=== PATIENT | male | born 1990 | race African-American/Black ===

== ENCOUNTER 2020-01-28 02:51 | Emergency (ER) | payer MEDICARE, OTHER ==
[~2020-01-28] VITALS: Ht 182.9 cm; Wt 77.1 kg
[2020-01-28] MEDS: CLONAZEPAM 0.5 MG TABLET PO ONE (03:21)
[2020-01-28] MEDS: OXYCODONE HCL 5 MG TABLET PO ONE (03:22)
[2020-01-28] MEDS ORDERED: OXYCODONE HCL 5 MG TABLET ONE (03:24)
[2020-01-28] MEDS ORDERED: CLONAZEPAM 1 MG TABLET ONE (03:24)
--- NOTE | 2020-01-28 03:24 | NUR ---
Patient discharged to home in stable condition. Written and verbal after care instructions given. Patient verbalizes understanding of instructions. Stressed follow up or return to ER for worsening s/s. Ambulated from ER with stable gait. All belongings with patient.
[2020-01-28 03:25] VITALS: BP 127/70
== END 2020-01-28 03:25 | disposition home or self-care (01) ==
LOC: ER 02:55
DX: Z76.0 Encounter for issue of repeat prescription (principal); F41.9 Anxiety disorder, unspecified; Z59.0 Homelessness; F17.200 Nicotine dependence, unspecified, uncomplicated; J45.909 Unspecified asthma, uncomplicated; M79.673 Pain in unspecified foot
CPT/HCPCS: A4663

== ENCOUNTER 2020-02-03 16:25 | Emergency (ER) | payer MEDICARE, OTHER ==
[~2020-02-03] VITALS: Ht 182.9 cm; Wt 77.1 kg
[2020-02-03] MEDS ORDERED: OXYCODONE/APAP 5-325 MG TABLET ONE (16:42)
[2020-02-03] MEDS ORDERED: OXYCODONE/APAP 5-325 MG TABLET PO ONE (16:45)
--- NOTE | 2020-02-03 16:55 | NUR ---
Patient given written and verbal discharge instructions. Patient verbalizes understanding of instructions. Patient is ambulatory with steady gait. Refuses offer of [facility] placement. Patient given list of available shelters in surrounding area.
== END 2020-02-03 16:57 | disposition home or self-care (01) ==
LOC: ER 16:27
DX: M79.672 Pain in left foot (principal); Z76.0 Encounter for issue of repeat prescription; F20.9 Schizophrenia, unspecified; J45.909 Unspecified asthma, uncomplicated; G89.21 Chronic pain due to trauma; S92.002S Unspecified fracture of left calcaneus, sequela; X58.XXXS Exposure to other specified factors, sequela; Z59.0 Homelessness
CPT/HCPCS: A4663

== ENCOUNTER 2020-02-04 13:47 | Emergency (ER) | payer MEDICARE, OTHER ==
[~2020-02-04] VITALS: Ht 182.9 cm; Wt 79.8 kg
--- NOTE | 2020-02-04 14:00 | NUR ---
HOSPITAL LUNCH TRAY AND SANDWICH PROVIDED FOR PT. PT ATE WITH MAINOR.
[2020-02-04] MEDS ORDERED: IBUPROFEN 800 MG TABLET ONE (14:23)
[2020-02-04] MEDS ORDERED: IBUPROFEN 800 MG TABLET PO ONE (14:30)
--- NOTE | 2020-02-04 14:30 | NUR ---
Patient given written and verbal discharge instructions. Patient verbalizes understanding of instructions. Patient is ambulatory with steady gait. Refuses offer of care home placement. Patient given list of available shelters in surrounding area.PT WALKS IN STEADY GAIT.
== END 2020-02-04 14:30 | disposition home or self-care (01) ==
LOC: ER 13:47
DX: G89.29 Other chronic pain (principal); M79.672 Pain in left foot; M79.671 Pain in right foot; J45.909 Unspecified asthma, uncomplicated; F20.9 Schizophrenia, unspecified; Z59.0 Homelessness; R03.0 Elevated blood-pressure reading, without diagnosis of hypertension
CPT/HCPCS: A4663

== ENCOUNTER 2020-02-07 15:46 | Emergency (ER) | payer MEDICARE, OTHER ==
[~2020-02-07] VITALS: Ht 182.9 cm; Wt 79.4 kg
--- NOTE | 2020-02-07 15:50 | NUR ---
Dr. Frank at bedside for MSE
[2020-02-07] MEDS ORDERED: IBUPROFEN 600 MG TABLET PO ONE (16:00)
[2020-02-07] MEDS ORDERED: IBUPROFEN 600 MG TABLET ONE (16:06)
--- NOTE | 2020-02-07 16:08 | NUR ---
Patient given written and verbal discharge instructions. Patient verbalizes understanding of instructions. Patient is ambulatory with steady gait. Refuses offer of [facility] placement. Patient given list of available shelters in surrounding area. NAD noted
[2020-02-07 16:12] VITALS: BP 132/91
== END 2020-02-07 16:08 | disposition home or self-care (01) ==
LOC: ER 15:50
DX: G89.29 Other chronic pain (principal); M79.673 Pain in unspecified foot; Z59.0 Homelessness; F20.9 Schizophrenia, unspecified; J45.909 Unspecified asthma, uncomplicated
CPT/HCPCS: A4663

== ENCOUNTER 2020-02-17 19:41 | Emergency (ER) | payer MEDICARE, OTHER ==
[~2020-02-17] VITALS: Ht 182.9 cm; Wt 79.4 kg
--- NOTE | 2020-02-17 20:00 | NUR ---
Dr. Frank at bedside MSE.
--- NOTE | 2020-02-17 20:33 | NUR ---
Patient discharged to home in stable condition. Written and verbal after care instructions given. Patient verbalizes understanding of instructions. Stressed follow up or return to ER for worsening s/s. Ambulated out of ER in steady gait.
[2020-02-17 20:36] VITALS: BP 120/70
== END 2020-02-17 20:37 | disposition home or self-care (01) ==
LOC: ER 19:43
DX: Z76.0 Encounter for issue of repeat prescription (principal); G89.29 Other chronic pain; F41.9 Anxiety disorder, unspecified; Z59.0 Homelessness; F20.9 Schizophrenia, unspecified
CPT/HCPCS: A4663

== ENCOUNTER 2020-03-01 07:30 | Emergency (ER) | payer MEDICARE, OTHER ==
[~2020-03-01] VITALS: Ht 182.9 cm; Wt 79.4 kg
[2020-03-01] MEDS ORDERED: IBUPROFEN 800 MG TABLET PO ONE (08:30)
[2020-03-01] MEDS ORDERED: IBUPROFEN 800 MG TABLET ONE (08:40)
--- NOTE | 2020-03-01 08:41 | NUR ---
Patient given written and verbal discharge instructions. Patient verbalizes understanding of instructions. Patient is ambulatory with steady gait. Refuses offer of half-way placement. Patient given list of available shelters in surrounding area.pt provided sandwiches, snacks and jacket.
[2020-03-01 08:43] VITALS: BP 161/89
== END 2020-03-01 09:18 | disposition home or self-care (01) ==
LOC: ER 07:30
DX: G89.21 Chronic pain due to trauma (principal); M79.672 Pain in left foot; Z59.0 Homelessness; Z88.6 Allergy status to analgesic agent; J45.909 Unspecified asthma, uncomplicated; F20.9 Schizophrenia, unspecified; T14.90XS Injury, unspecified, sequela; W13.2XXS Fall from, out of or through roof, sequela
CPT/HCPCS: A4663

== ENCOUNTER 2020-03-07 01:20 | Emergency (ER) | payer MEDICARE, OTHER ==
[~2020-03-07] VITALS: Ht 182.9 cm; Wt 86.2 kg
--- NOTE | 2020-03-07 01:35 | NUR ---
at bedside for assessment.
[2020-03-07] MEDS ORDERED: CLONAZEPAM 0.5 MG TABLET PO ONE (01:45)
[2020-03-07] MEDS ORDERED: CLONAZEPAM 0.5 MG TABLET ONE (01:48)
--- NOTE | 2020-03-07 02:04 | NUR ---
Patient discharged to home in stable condition. Written and verbal after care instructions given. Patient verbalizes understanding of instructions. Stressed follow up or return to ER for worsening s/s. Patient ambulating with steady gate, no signs of distress or pain.
[2020-03-07 02:05] VITALS: BP 150/78
== END 2020-03-07 02:04 | disposition home or self-care (01) ==
LOC: ER 01:23
DX: F41.9 Anxiety disorder, unspecified (principal); Z76.0 Encounter for issue of repeat prescription; G89.29 Other chronic pain; J45.909 Unspecified asthma, uncomplicated; F20.9 Schizophrenia, unspecified
CPT/HCPCS: A4663

== ENCOUNTER 2020-04-07 19:14 | Emergency (ER) | payer MEDICARE, OTHER ==
[~2020-04-07] VITALS: Ht 177.8 cm; Wt 86.2 kg
[2020-04-08] MEDS ORDERED: ALPRAZOLAM 0.25 MG TABLET PO ONE (04:00)
[2020-04-08] MEDS ORDERED: ALPRAZOLAM 0.5 MG TABLET ONE (04:06)
[2020-04-08 04:22] VITALS: BP 150/89
--- NOTE | 2020-04-08 04:22 | NUR ---
Patient discharged to home in stable condition. Written and verbal after care instructions given. Patient verbalizes understanding of instructions. Stressed follow up or return to ER for worsening s/s.
== END 2020-04-08 04:23 | disposition home or self-care (01) ==
LOC: ER 19:14
DX: F41.9 Anxiety disorder, unspecified (principal); Z76.0 Encounter for issue of repeat prescription; F20.9 Schizophrenia, unspecified; R03.0 Elevated blood-pressure reading, without diagnosis of hypertension; G89.29 Other chronic pain; J45.909 Unspecified asthma, uncomplicated
CPT/HCPCS: A4663

== ENCOUNTER 2020-04-09 14:35 | Emergency (ER) | payer MEDICARE, OTHER ==
[~2020-04-09] VITALS: Ht 182.9 cm; Wt 90.7 kg
--- NOTE | 2020-04-09 14:40 | NUR ---
Pt was triaged and is in the ER lobby, there are no ER beds available at this time.
--- NOTE | 2020-04-09 17:12 | NUR ---
Patient discharged to home in stable condition. Written and verbal after care instructions given. Patient verbalizes understanding of instructions. Stressed follow up or return to ER for worsening s/s.pt walks in steady gait.
[2020-04-09] MEDS ORDERED: OXYCODONE/APAP 5-325 MG TABLET ONE (17:13)
[2020-04-09] MEDS ORDERED: OXYCODONE/APAP 5-325 MG TABLET PO ONE (17:15)
== END 2020-04-09 17:17 | disposition home or self-care (01) ==
LOC: ER 14:35
DX: M79.672 Pain in left foot (principal); Z76.0 Encounter for issue of repeat prescription; F20.9 Schizophrenia, unspecified; G89.29 Other chronic pain; J45.909 Unspecified asthma, uncomplicated; F41.9 Anxiety disorder, unspecified
CPT/HCPCS: A4663

== ENCOUNTER 2020-04-10 22:49 | Emergency (ER) | payer MEDICARE, OTHER ==
[~2020-04-10] VITALS: Ht 182.9 cm; Wt 90.7 kg
--- NOTE | 2020-04-10 23:02 | NUR ---
ATIVAN PO ADMIN. PT D/C'D HOME, ACI GIVEN, PT AMBULATED W/O DIFF/TOOK ALL BELONGINGS HOME,.
[2020-04-10 23:03] VITALS: BP 132/88
[2020-04-10] MEDS ORDERED: LORAZEPAM 0.5 MG TABLET ONE (23:06)
[2020-04-10] MEDS ORDERED: LORAZEPAM 0.5 MG TABLET PO ONE (23:15)
== END 2020-04-10 23:04 | disposition home or self-care (01) ==
LOC: ER 22:53
DX: F41.9 Anxiety disorder, unspecified (principal); G89.29 Other chronic pain; Z76.0 Encounter for issue of repeat prescription; J45.909 Unspecified asthma, uncomplicated; F20.9 Schizophrenia, unspecified; R03.0 Elevated blood-pressure reading, without diagnosis of hypertension
CPT/HCPCS: A4663

== ENCOUNTER 2020-04-28 11:57 | Emergency (ER) | payer MEDICARE, OTHER ==
[~2020-04-28] VITALS: Ht 175.3 cm; Wt 90.7 kg
[2020-04-28] MEDS ORDERED: OXYCODONE/APAP 5-325 MG TABLET PO ONE (12:15)
[2020-04-28] MEDS ORDERED: OXYCODONE/APAP 5-325 MG TABLET ONE (12:25)
[2020-04-29] MEDS ORDERED: OXYC-133 PO (18:39)
== END 2020-04-28 12:21 | disposition home or self-care (01) ==
LOC: ER 11:57
DX: J45.909 Unspecified asthma, uncomplicated (principal); F20.9 Schizophrenia, unspecified; F41.9 Anxiety disorder, unspecified; Z88.5 Allergy status to narcotic agent; Z76.0 Encounter for issue of repeat prescription
CPT/HCPCS: A4663

== ENCOUNTER 2020-04-29 02:25 | Emergency (ER) | payer MEDICARE, OTHER ==
[~2020-04-29] VITALS: Ht 182.9 cm; Wt 90.7 kg
--- NOTE | 2020-04-29 02:38 | NUR ---
Patient walked into ER c/o anxiety for 10hrs, stating "I take anything you recommend for anxiety." No other complaint from patient other than anxiety.
[2020-04-29] MEDS ORDERED: OXYC-133 PO (18:39)
== END 2020-04-29 03:01 | disposition home or self-care (01) ==
LOC: ER 02:37
DX: F41.9 Anxiety disorder, unspecified (principal); R03.0 Elevated blood-pressure reading, without diagnosis of hypertension; G89.29 Other chronic pain; F20.9 Schizophrenia, unspecified
CPT/HCPCS: A4663

== ENCOUNTER 2020-04-29 18:20 | Emergency (ER) | payer MEDICARE, OTHER ==
[~2020-04-29] VITALS: Ht 182.9 cm; Wt 90.7 kg
[2020-04-29] MEDS ORDERED: OXYC-133 PO (18:39)
[2020-04-29 20:23] VITALS: BP 132/77
--- NOTE | 2020-04-29 20:45 | NUR ---
Patient discharged to home in stable condition. Written and verbal after care instructions given. Patient verbalizes understanding of instructions. Stressed follow up or return to ER for worsening s/s. Patient ambulated with steady gait, all belongings given to patient prior to departure.
== END 2020-04-29 20:46 | disposition home or self-care (01) ==
LOC: ER 18:20
DX: R05 Cough (principal); Z20.822 Contact with and (suspected) exposure to COVID-19; F41.9 Anxiety disorder, unspecified; J45.909 Unspecified asthma, uncomplicated; F20.9 Schizophrenia, unspecified; G89.29 Other chronic pain
CPT/HCPCS: 71045; A4663

== ENCOUNTER 2020-04-30 10:31 | Emergency (ER) | payer MEDICARE, OTHER ==
[~2020-04-30] VITALS: Ht 182.9 cm; Wt 90.7 kg
[~2020-04-30 10:31] MED LIST: OXYC-133 PO
[2020-04-30] MEDS ORDERED: ACETAMINOPHEN ES 500 MG TABLET PO ONE (11:15)
[2020-04-30] MEDS ORDERED: ACETAMINOPHEN ES 500 MG TABLET ONE (11:30)
== END 2020-04-30 11:29 | disposition home or self-care (01) ==
LOC: ER 10:31
DX: B35.3 Tinea pedis (principal); G89.29 Other chronic pain; Z79.891 Long term (current) use of opiate analgesic; J45.909 Unspecified asthma, uncomplicated; F20.9 Schizophrenia, unspecified
CPT/HCPCS: A4663; A9150

== ENCOUNTER 2020-05-29 12:32 | Emergency (ER) | payer MEDICARE, OTHER ==
[~2020-05-29] VITALS: Ht 182.9 cm; Wt 90.7 kg
[2020-05-29] MEDS ORDERED: ALPRAZOLAM 0.25 MG TABLET PO ONE (13:00)
--- NOTE | 2020-05-29 13:00 | NUR ---
Gave pt RX and d/c instructions, pt verbalized understanding.
[2020-05-29] MEDS ORDERED: ALPRAZOLAM 0.5 MG TABLET ONE (13:02)
[2020-05-30] MEDS ORDERED: IBUP-1955 PO (08:36)
== END 2020-05-29 13:05 | disposition home or self-care (01) ==
LOC: ER 12:32
DX: F41.9 Anxiety disorder, unspecified (principal); Z76.0 Encounter for issue of repeat prescription; J45.909 Unspecified asthma, uncomplicated; G89.29 Other chronic pain; Z86.19 Personal history of other infectious and parasitic diseases
CPT/HCPCS: A4663

== ENCOUNTER 2020-05-30 08:15 | Emergency (ER) | payer MEDICARE, OTHER ==
[~2020-05-30] VITALS: Ht 188 cm; Wt 83.9 kg
[2020-05-30] MEDS ORDERED: IBUPROFEN 800 MG TABLET PO ONE (08:30)
[2020-05-30] MEDS ORDERED: IBUP-1955 PO (08:36)
[2020-05-30] MEDS ORDERED: IBUPROFEN 800 MG TABLET ONE (08:40)
--- NOTE | 2020-05-30 08:42 | NUR ---
Gave pt RX (electronic transaction) and d/c instructions, pt verbalized understanding.
== END 2020-05-30 08:55 | disposition home or self-care (01) ==
LOC: ER 08:15
DX: M79.672 Pain in left foot (principal); Z76.5 Malingerer [conscious simulation]; Z88.6 Allergy status to analgesic agent; G89.29 Other chronic pain; F20.9 Schizophrenia, unspecified; J45.909 Unspecified asthma, uncomplicated; Z86.19 Personal history of other infectious and parasitic diseases; F32.9 Major depressive disorder, single episode, unspecified
CPT/HCPCS: A4663

== ENCOUNTER 2020-05-31 18:38 | Emergency (ER) | payer MEDICARE, OTHER ==
[~2020-05-31] VITALS: Ht 188 cm; Wt 90.7 kg
[~2020-05-31 18:38] MED LIST changes: +IBUP-1955 PO
[2020-05-31] MEDS ORDERED: IBUPROFEN 600 MG TABLET PO ONE (19:00)
[2020-05-31] MEDS ORDERED: diphenhydrAMINE 25 MG/10 ML UDC PO ONE (19:00)
--- NOTE | 2020-05-31 19:00 | NUR ---
Assumed care of patient from day shift CLINT Cannon. Patient came in with complaints of anxiety. AAOX4. No cardiorespiratory concern. No /GI concern.
[2020-05-31] MEDS ORDERED: diphenhydrAMINE 25 MG CAP PO ONE (19:09)
[2020-05-31] MEDS ORDERED: IBUPROFEN 600 MG TABLET ONE (19:09)
--- NOTE | 2020-05-31 19:15 | NUR ---
Patient discharged to home in stable condition. Written and verbal after care instructions given. Patient verbalizes understanding of instructions. Stressed follow up or return to ER for worsening s/s. Pt ambulated out of the ER with steady gait. All belongings with pt.
[2020-05-31 19:34] VITALS: BP 130/70
== END 2020-05-31 19:15 | disposition home or self-care (01) ==
LOC: ER 18:40
DX: F41.9 Anxiety disorder, unspecified (principal); Z76.5 Malingerer [conscious simulation]; G89.29 Other chronic pain; F20.9 Schizophrenia, unspecified; Z86.19 Personal history of other infectious and parasitic diseases; F17.200 Nicotine dependence, unspecified, uncomplicated; Z59.0 Homelessness
CPT/HCPCS: 99283; Q0163; A4663

== ENCOUNTER 2020-06-01 12:34 | Emergency (ER) | payer MEDICARE, OTHER ==
[~2020-06-01] VITALS: Ht 188 cm; Wt 90.7 kg
[2020-06-01] MEDS ORDERED: CLONAZEPAM 0.5 MG TABLET PO ONE (13:00)
[2020-06-01] MEDS ORDERED: buPROPion XL 150 MG TAB.SR.24H PO ONE (13:00)
[2020-06-01] MEDS ORDERED: CLONAZEPAM 0.5 MG TABLET ONE (13:04)
--- NOTE | 2020-06-01 13:04 | NUR ---
Note violet in EDM - 06/01/20 at 1324 by JAROD Patient given written and verbal discharge instructions. Patient verbalizes understanding of instructions. Patient is ambulatory with steady gait. Refuses offer of [facility] placement. Patient given list of available shelters in surrounding area.
--- NOTE | 2020-06-01 13:24 | NUR ---
Patient discharged to home in stable condition. Written and verbal after care instructions given. Patient verbalizes understanding of instructions. Stressed follow up or return to ER for worsening s/s.pt deneis to be homeless.
== END 2020-06-01 13:20 | disposition home or self-care (01) ==
LOC: ER 12:36
DX: F41.9 Anxiety disorder, unspecified (principal); F32.9 Major depressive disorder, single episode, unspecified; Z76.0 Encounter for issue of repeat prescription; G89.29 Other chronic pain; F20.9 Schizophrenia, unspecified; Z59.0 Homelessness; J45.909 Unspecified asthma, uncomplicated; Z86.19 Personal history of other infectious and parasitic diseases
CPT/HCPCS: A4663

== ENCOUNTER 2020-06-03 11:17 | Emergency (ER) | payer MEDICARE, OTHER ==
[~2020-06-03] VITALS: Ht 188 cm; Wt 90.7 kg
--- NOTE | 2020-06-03 11:36 | NUR ---
Pt c/o right heel pain again. Pt denies CP, SOB, dizziness, n/v, no other complaints, no distress noted.
[2020-06-03] MEDS ORDERED: IBUPROFEN 600 MG TABLET PO ONE (11:45)
[2020-06-03] MEDS ORDERED: IBUPROFEN 600 MG TABLET ONE (11:57)
[2020-06-03] MEDS ORDERED: IBUP-1955 PO (12:16)
--- NOTE | 2020-06-03 12:28 | NUR ---
Gave pt RX and d/c instructions, pt verbalized understanding.
== END 2020-06-03 12:30 | disposition home or self-care (01) ==
LOC: ER 11:17
DX: G89.29 Other chronic pain (principal); M79.672 Pain in left foot; S92.002S Unspecified fracture of left calcaneus, sequela; X58.XXXS Exposure to other specified factors, sequela; J45.909 Unspecified asthma, uncomplicated; F20.9 Schizophrenia, unspecified; Z86.19 Personal history of other infectious and parasitic diseases
CPT/HCPCS: 73630; A4663

== ENCOUNTER 2020-06-04 17:56 | Emergency (ER) | payer MEDICARE, OTHER ==
[~2020-06-04] VITALS: Ht 188 cm; Wt 90.7 kg
--- NOTE | 2020-06-04 18:54 | NUR ---
Patient discharged to home in stable condition. Written and verbal after care instructions given. Patient verbalizes understanding of instructions. Stressed follow up or return to ER for worsening s/s.PT REQUESTED AMARA, PROVIDED.
--- NOTE | 2020-06-04 18:55 | NUR ---
PT DENEIS TO BE HOMELESS.
[2020-06-04] MEDS ORDERED: CLONAZEPAM 0.5 MG TABLET ONE (18:57)
[2020-06-04] MEDS ORDERED: CLONAZEPAM 0.5 MG TABLET PO ONE (19:00)
== END 2020-06-04 18:55 | disposition home or self-care (01) ==
LOC: ER 17:56
DX: G89.29 Other chronic pain (principal); F41.9 Anxiety disorder, unspecified; Z76.0 Encounter for issue of repeat prescription; F20.9 Schizophrenia, unspecified; J45.909 Unspecified asthma, uncomplicated
CPT/HCPCS: A4663

== ENCOUNTER 2020-06-06 12:00 | Emergency (ER) | payer MEDICARE, OTHER ==
[~2020-06-06] VITALS: Ht 188 cm; Wt 90.7 kg
== END 2020-06-06 12:30 | disposition left against medical advice (07) ==
LOC: ER 12:03
DX: Z76.5 Malingerer [conscious simulation] (principal); G89.21 Chronic pain due to trauma; M79.673 Pain in unspecified foot; S92.009S Unspecified fracture of unspecified calcaneus, sequela; X58.XXXS Exposure to other specified factors, sequela
CPT/HCPCS: A4663

== ENCOUNTER 2020-06-07 14:16 | Emergency (ER) | payer MEDICARE, OTHER | END 2020-06-07 14:21 | disposition left against medical advice (07) | LOC: ER 14:16 | DX: Z75.3 Unavailability and inaccessibility of health-care facilities (principal) ==

== ENCOUNTER 2020-06-08 17:23 | Emergency (ER) | payer MEDICARE, OTHER ==
[~2020-06-08] VITALS: Ht 188 cm; Wt 90.7 kg
[2020-06-08] MEDS ORDERED: CHLORDIAZEPOXIDE HCL 25 MG CAPSULE PO ONE (17:45)
--- NOTE | 2020-06-08 17:52 | NUR ---
PT WAS EVALUATED BY DR PATEL. PT WAS D/C'd TO HOME. D/C INSTRUCTIONS GIVEN TO THE PT BY DR PATEL. NO S/S OF DISTRESS AT THE TIME OF DISCHARGE.
[2020-06-08] MEDS ORDERED: CHLORDIAZEPOXIDE HCL 25 MG CAPSULE ONE (17:54)
[2020-06-08 17:56] VITALS: BP 135/77
== END 2020-06-08 17:56 | disposition home or self-care (01) ==
LOC: ER 17:24
DX: F41.9 Anxiety disorder, unspecified (principal); Z76.0 Encounter for issue of repeat prescription; G89.29 Other chronic pain; F20.9 Schizophrenia, unspecified; J45.909 Unspecified asthma, uncomplicated; F32.9 Major depressive disorder, single episode, unspecified; Z59.0 Homelessness
CPT/HCPCS: A4663

== ENCOUNTER 2020-06-24 09:31 | Emergency (ER) | payer MEDICARE, OTHER ==
[~2020-06-24] VITALS: Ht 182.9 cm; Wt 90.7 kg
[2020-06-24] MEDS ORDERED: DICYCLOMINE HCL 10 MG CAPSULE PO ONE (09:45)
[2020-06-24] MEDS ORDERED: ONDANSETRON ODT 4 MG TAB.RAPDIS SL ONE (09:45)
[2020-06-24] MEDS ORDERED: FAMOTIDINE 20 MG TABLET PO ONE (09:45)
[2020-06-24] MEDS ORDERED: ONDANSETRON ODT 4 MG TAB.RAPDIS ONE (09:56)
[2020-06-24] MEDS ORDERED: FAMOTIDINE 20 MG TABLET ONE (09:57)
[2020-06-24] MEDS ORDERED: DICYCLOMINE HCL LIQ 10 MG/5 ML UDC ONE (09:57)
[2020-06-24 10:07] LABS: BASOPHILS % (AUTO) 0.8 % (0.0-2.0); EOSINOPHILS # (AUTO) 0.1 K/uL (0.0-0.7); EOSINOPHILS % (AUTO) 1.1 % (0.0-7.0); HEMATOCRIT 40.1 % (36.7-47.1); HEMOGLOBIN 13.6 g/dL (12.5-16.3); LYMPHOCYTES # (AUTO) 1.7 K/uL (20.0-40.0); MEAN CORPUSCULAR HEMOGLOBIN 32.1 uug (23.8-33.4); MEAN CORPUSCULAR HGB CONC 34 g/dL (32.5-36.3); MEAN CORPUSCULAR VOLUME 94.5 fL (73.0-96.2); MONOCYTES # (AUTO) 0.6 K/uL (2.0-10.0); MONOCYTES % (AUTO) 9.7 % (0.0-11.0); NEUTROPHILS # (AUTO) 3.5 K/uL (1.8-8.9); NEUTROPHILS % (AUTO) 59.4 % (38.5-71.5); PLATELET COUNT (AUTO) 245 K/uL (152-348); RED BLOOD CELL COUNT(AUTO) 4.25 MIL/uL (4.06-5.63); WHITE BLOOD COUNT (AUTO) 5.9 K/uL (3.6-10.2)
[2020-06-24 10:21] LABS: CREATININE 1.1 mg/dL (0.6-1.3); POTASSIUM 3.8 mmol/L (3.5-5.1)
[2020-06-24 10:30] LABS: BILIRUBIN,DIRECT 0.2 mg/dL (0.0-0.2); BILIRUBIN,TOTAL 0.8 mg/dL (0.2-1.0); TOTAL PROTEIN, SERUM 7.1 g/dL (6.4-8.2)
[2020-06-24 10:31] LABS: *AMPHETAMINE, URINE POSITIVE (NEGATIVE); *CANNABINOID, URINE POSITIVE (NEGATIVE); *COCCAINE, URINE NEGATIVE (NEGATIVE); *OPIATE, URINE NEGATIVE (NEGATIVE); *PHENCYCLIDINE SCREEN,URINE NEGATIVE (NEGATIVE)
--- NOTE | 2020-06-24 10:43 | NUR ---
pt deneis any nausea at this time, food provided per pt request and md torres.
--- NOTE | 2020-06-24 11:17 | NUR ---
pt toleated food well, says feels good. Patient discharged to home in stable condition. Written and verbal after care instructions given. Patient verbalizes understanding of instructions. Stressed follow up or return to ER for worsening s/s.
--- NOTE | 2020-06-24 11:19 | NUR ---
pt refuses offer of assisted placement. Patient given list of available shelters in surrounding area.
[2020-06-24 11:27] VITALS: BP 121/79
== END 2020-06-24 11:29 | disposition home or self-care (01) ==
LOC: ER 09:31
DX: R10.12 Left upper quadrant pain (principal); F19.10 Other psychoactive substance abuse, uncomplicated; R03.0 Elevated blood-pressure reading, without diagnosis of hypertension; G89.29 Other chronic pain; Z59.0 Homelessness; J45.909 Unspecified asthma, uncomplicated; F41.9 Anxiety disorder, unspecified; F20.9 Schizophrenia, unspecified; Z86.19 Personal history of other infectious and parasitic diseases; Z79.899 Other long term (current) drug therapy; R74.01 Elevation of levels of liver transaminase levels
CPT/HCPCS: 36415; 83690; 85025; A4663; Q0162

== ENCOUNTER 2020-07-03 11:30 | Emergency (ER) | payer MEDICARE, OTHER ==
[~2020-07-03] VITALS: Ht 182.9 cm; Wt 90.7 kg
--- NOTE | 2020-07-03 11:40 | NUR ---
at bedside for assessment
[2020-07-03] MEDS ORDERED: LORAZEPAM 2 MG/1 ML VIAL IM ONE (11:45)
[2020-07-03] MEDS ORDERED: LORAZEPAM 2 MG/1 ML VIAL ONE (11:50)
[2020-07-03 11:57] LABS: BASOPHILS % (AUTO) 0.6 % (0.0-2.0); EOSINOPHILS # (AUTO) 0.1 K/uL (0.0-0.7); EOSINOPHILS % (AUTO) 1.1 % (0.0-7.0); HEMATOCRIT 41.2 % (36.7-47.1); HEMOGLOBIN 13.9 g/dL (12.5-16.3); LYMPHOCYTES # (AUTO) 1.7 K/uL (20.0-40.0); LYMPHOCYTES % (AUTO) 33.1 % (20.5-51.5); MEAN CORPUSCULAR HEMOGLOBIN 31.6 uug (23.8-33.4); MEAN CORPUSCULAR HGB CONC 34 g/dL (32.5-36.3); MEAN CORPUSCULAR VOLUME 93.6 fL (73.0-96.2); MONOCYTES # (AUTO) 0.4 K/uL (2.0-10.0); MONOCYTES % (AUTO) 7.3 % (0.0-11.0); NEUTROPHILS % (AUTO) 57.9 % (38.5-71.5); PLATELET COUNT (AUTO) 270 K/uL (152-348); RED BLOOD CELL COUNT(AUTO) 4.41 MIL/uL (4.06-5.63); WHITE BLOOD COUNT (AUTO) 5.3 K/uL (3.6-10.2)
[2020-07-03 12:05] LABS: CREATININE 1.4 mg/dL (0.6-1.3); POTASSIUM 4.4 mmol/L (3.5-5.1)
[2020-07-03 12:12] LABS: BILIRUBIN,DIRECT 0.2 mg/dL (0.0-0.2); BILIRUBIN,TOTAL 0.6 mg/dL (0.2-1.0); TOTAL PROTEIN, SERUM 6.9 g/dL (6.4-8.2)
--- NOTE | 2020-07-03 12:33 | NUR ---
Patient discharged to home in stable condition. able to ambulate with steady gait, no signs of acute distress. Written and verbal after care instructions given. Patient verbalizes understanding of instructions. Stressed follow up or return to ER for worsening s/s.
[2020-07-03 12:35] VITALS: BP 119/75
[2020-07-03] MEDS ORDERED: HYDROMORPHONE 1 MG/1 ML DISP.SYRIN IV ONE (12:45)
[2020-07-03] MEDS ORDERED: KETOROLAC TROMETHAMINE 30 MG INJ IVP ONE (12:45)
== END 2020-07-03 12:35 | disposition home or self-care (01) ==
LOC: ER 11:30
DX: R10.13 Epigastric pain (principal); F41.9 Anxiety disorder, unspecified; F17.210 Nicotine dependence, cigarettes, uncomplicated; Z59.0 Homelessness; G89.29 Other chronic pain; F20.9 Schizophrenia, unspecified; J45.909 Unspecified asthma, uncomplicated; Z86.19 Personal history of other infectious and parasitic diseases
CPT/HCPCS: 36415; 80048; 80076; 83690; 85025; 96372; 99283; J2060; A4663

== ENCOUNTER 2020-08-28 02:59 | Emergency (ER) | payer MEDICARE, OTHER ==
[~2020-08-28] VITALS: Ht 182.9 cm; Wt 90.7 kg
--- NOTE | 2020-08-28 03:09 | NUR ---
Patient pacing around the ER, stating he feels nervous and requests to see the doctor immediately. Patient was led to wait back in his room, MD Raymond Meredith made aware.
[2020-08-28] MEDS ORDERED: ARIP15TA3 PO (03:18)
--- NOTE | 2020-08-28 03:20 | NUR ---
Patient uncooperative and refusing to stay in his room, asserting himself into the nursing station, not respecting personal boundaries of hospital staff. De-escalation techniques unsuccessful, security called to bedside.
[2020-08-28] MEDS ORDERED: ARIPIPRAZOLE 5 MG TABLET ONE (03:28)
[2020-08-28] MEDS ORDERED: ARIPIPRAZOLE 5 MG TABLET PO ONE (03:30)
[2020-08-28 03:40] VITALS: BP 140/96
--- NOTE | 2020-08-28 03:40 | NUR ---
Patient discharged in stable condition. Written and verbal after care instructions given. Patient verbalizes understanding of instructions. Stressed follow up or return to ER for worsening s/s. Patient ambulates with steady gait, V/S stable, paper Rx given, patient left with all personal belongings. Patient was escorted with security.
== END 2020-08-28 03:40 | disposition home or self-care (01) ==
LOC: ER 02:59
DX: R41.9 Unspecified symptoms and signs involving cognitive functions and awareness (principal); F20.9 Schizophrenia, unspecified; Z76.0 Encounter for issue of repeat prescription; Z59.0 Homelessness; R03.0 Elevated blood-pressure reading, without diagnosis of hypertension; Z86.19 Personal history of other infectious and parasitic diseases; J45.909 Unspecified asthma, uncomplicated; G89.29 Other chronic pain
CPT/HCPCS: A4663

== ENCOUNTER 2020-08-29 07:11 | Emergency (ER) | payer MEDICARE, OTHER ==
[~2020-08-29] VITALS: Ht 182.9 cm; Wt 90.7 kg
[~2020-08-29 07:11] MED LIST changes: +ARIP15TA3 PO
--- NOTE | 2020-08-29 07:49 | NUR ---
BREAK FAST TRAY PROVIDED PER PT REQUEST.
--- NOTE | 2020-08-29 09:14 | NUR ---
Patient given written and verbal discharge instructions. Patient verbalizes understanding of instructions. Patient is ambulatory with steady gait. Refuses offer of penitentiary placement. Patient given list of available shelters in surrounding area. PT WALKS IN STEADY GAIT.
== END 2020-08-29 09:15 | disposition home health service (06) ==
LOC: ER 07:15
DX: F41.9 Anxiety disorder, unspecified (principal); Z59.0 Homelessness; F20.9 Schizophrenia, unspecified; J45.909 Unspecified asthma, uncomplicated; G89.29 Other chronic pain; F13.10 Sedative, hypnotic or anxiolytic abuse, uncomplicated; Z86.19 Personal history of other infectious and parasitic diseases; F32.9 Major depressive disorder, single episode, unspecified
CPT/HCPCS: A4663

== ENCOUNTER 2020-09-07 22:56 | Emergency (ER) | payer MEDICARE, OTHER ==
[~2020-09-07] VITALS: Ht 182.9 cm; Wt 90.7 kg
--- NOTE | 2020-09-08 00:22 | NUR ---
at bedside for MSE.
--- NOTE | 2020-09-08 00:42 | NUR ---
Patient discharged to home in stable condition. Written and verbal after care instructions given. Patient verbalizes understanding of instructions. Stressed follow up or return to ER for worsening s/s. Pt walked out of ER with steady gait.
[2020-09-08 00:43] VITALS: BP 131/87
== END 2020-09-08 00:43 | disposition home or self-care (01) ==
LOC: ER 22:57
DX: F41.9 Anxiety disorder, unspecified (principal); G89.29 Other chronic pain; Z76.5 Malingerer [conscious simulation]; F20.9 Schizophrenia, unspecified; J45.909 Unspecified asthma, uncomplicated; Z86.19 Personal history of other infectious and parasitic diseases; F17.200 Nicotine dependence, unspecified, uncomplicated
CPT/HCPCS: A4663

== ENCOUNTER 2020-09-11 18:34 | Emergency (ER) | payer MEDICARE, OTHER ==
[~2020-09-11] VITALS: Ht 182.9 cm; Wt 90.7 kg
[2020-09-11] MEDS ORDERED: HYDR-3980 PO (18:42)
[2020-09-11] MEDS ORDERED: HYDROCODONE/APAP 10-325 MG TABLET PO ONE (18:45)
[2020-09-11] MEDS ORDERED: ALPRAZOLAM 0.25 MG TABLET PO ONE (18:45)
[2020-09-11 18:52] VITALS: BP 126/69
[2020-09-11] MEDS ORDERED: ALPRAZOLAM 0.5 MG TABLET ONE (18:54)
[2020-09-11] MEDS ORDERED: HYDROCODONE/APAP 10-325 MG TABLET ONE (18:54)
== END 2020-09-11 18:52 | disposition home or self-care (01) ==
LOC: ER 18:35
DX: G89.29 Other chronic pain (principal); F41.9 Anxiety disorder, unspecified; Z76.0 Encounter for issue of repeat prescription; J45.909 Unspecified asthma, uncomplicated; Z86.19 Personal history of other infectious and parasitic diseases; F20.9 Schizophrenia, unspecified
CPT/HCPCS: A4663

== ENCOUNTER 2020-09-13 00:30 | Inpatient (IN) | payer MEDICARE, OTHER ==
[2020-09-13] VITALS (17 sets, daily range): BP systolic 109–152; BP diastolic 56–100
[~2020-09-13] VITALS: Ht 182.9 cm; Wt 90.7 kg
[~2020-09-13 00:30] MED LIST changes: +HYDR-3980 PO
[2020-09-13] MEDS ORDERED: IV NORMAL SALINE 1000 ML BAG IV ONE (00:45)
[2020-09-13] MEDS ORDERED: NALOXONE HCL 0.4 MG/ML AMPUL IV ONE (00:45)
[2020-09-13] MEDS ORDERED: FLUMAZENIL 0.5 MG/5 ML VIAL IV ONE (00:45)
[2020-09-13 00:53] LABS: BASOPHILS # (AUTO) 0.1 K/uL (0.0-8.0); BASOPHILS % (AUTO) 0.9 % (0.0-2.0); EOSINOPHILS % (AUTO) 0.4 % (0.0-7.0); HEMATOCRIT 37.3 % (36.7-47.1); HEMOGLOBIN 12.6 g/dL (12.5-16.3); LYMPHOCYTES # (AUTO) 1.6 K/uL (20.0-40.0); LYMPHOCYTES % (AUTO) 29.7 % (20.5-51.5); MEAN CORPUSCULAR HEMOGLOBIN 30.9 uug (23.8-33.4); MEAN CORPUSCULAR HGB CONC 34 g/dL (32.5-36.3); MEAN CORPUSCULAR VOLUME 91.6 fL (73.0-96.2); MONOCYTES # (AUTO) 0.4 K/uL (2.0-10.0); MONOCYTES % (AUTO) 6.7 % (0.0-11.0); NEUTROPHILS # (AUTO) 3.4 K/uL (1.8-8.9); NEUTROPHILS % (AUTO) 62.3 % (38.5-71.5); PLATELET COUNT (AUTO) 239 K/uL (152-348); RED BLOOD CELL COUNT(AUTO) 4.07 MIL/uL (4.06-5.63); WHITE BLOOD COUNT (AUTO) 5.5 K/uL (3.6-10.2)
[2020-09-13] MEDS ORDERED: FLUMAZENIL 0.5 MG/5 ML VIAL ONE (01:03)
[2020-09-13] MEDS ORDERED: NALOXONE HCL 0.4 MG/ML AMPUL ONE (01:03)
--- NOTE | 2020-09-13 01:07 | NUR ---
Patient brought in by RA 83. Patient is unresponsive to all stimuli on arrival, Pupils pinpoint 1mm and non-reactive to light. VS 128/76, HR 78, SpO2 88% on RA. Patient placed on a non-rebreather mask at 15L/min, Sat 98-100% with this. Patient has a torch and a glass Methamphetamine pipe on his person. No signs of recent needle use on his arms, hands, legs, or feet. Dr. Wilkins in room at this time as well.
[2020-09-13 01:11] LABS: CARBON DIOXIDE 30 mmol/L (21-32); CHLORIDE 104 mmol/L (98-107); CREATININE 1.3 mg/dL (0.6-1.3); GLUCOSE 118 mg/dL (74-106); POTASSIUM 3.7 mmol/L (3.5-5.1); UREA NITROGEN, BLOOD 22 mg/dL (7-18)
[2020-09-13 01:12] LABS: *BILIRUBIN,URIN 1+ (NEGATIVE); *BLOOD, URINE NEGATIVE (NEGATIVE); *CLARITY,URINE CLEAR (CLEAR); *COLOR,URINE YELLOW (YELLOW); *KETONES,URINE TRACE (NEGATIVE); LEUKOCYTE ESTERASE ,URINE NEGATIVE (NEGATIVE); NITRITE, URINE NEGATIVE (NEGATIVE); PH,URINE 5.5 (5.0-8.0); UGLUCOSE NEGATIVE (NEGATIVE)
--- NOTE | 2020-09-13 01:15 | NUR ---
Narcan and flumazenil administers about 15 minutes ago. Patient slightly responsive to painful stimuli, but reaction is slight. Pupils are now 3mm equal and reactive to light, however sluggish.
[2020-09-13 01:20] LABS: BACTERIA,URINE NONE SEEN /HPF (NONE SEEN); RBC,URINE 0-3 /HPF (0-3); SQUAMOUS EPITHELIAL CELL,UR FEW /HPF (NONE SEEN); URINE AMORPHOUS URATE MODERATE /HPF; WBC,URINE 0-3 /HPF (0-3)
[2020-09-13 01:21] LABS: MUCUS,URINE FEW /LPF (0-FEW)
[2020-09-13 01:25] LABS: ALANINE AMINOTRANSFERASE 58 U/L (16-63); ALKALINE PHOSPHATASE 60 U/L (50-136); ASPARTATE AMINOTRANSFERASE 55 U/L (15-37); BILIRUBIN,DIRECT 0.3 mg/dL (0.0-0.2); BILIRUBIN,TOTAL 1.1 mg/dL (0.2-1.0); ETHANOL < 3 MG/DL (0-0); TOTAL PROTEIN, SERUM 6.5 g/dL (6.4-8.2)
[2020-09-13 01:26] LABS: ACETAMINOPHEN < 2.0 ug/mL (10-30)
[2020-09-13 01:27] LABS: *AMPHETAMINE, URINE POSITIVE (NEGATIVE); *CANNABINOID, URINE POSITIVE (NEGATIVE); *COCCAINE, URINE NEGATIVE (NEGATIVE); *OPIATE, URINE POSITIVE (NEGATIVE); *PHENCYCLIDINE SCREEN,URINE NEGATIVE (NEGATIVE)
--- NOTE | 2020-09-13 02:30 | NUR ---
Patient is currently responsive to painful stimuli. Pupils remain 3mm equal and reactive to light, however sluggish. Patient is currently incontinent. Celestin catheter 18fr. placed without complication.
[2020-09-13] MEDS ORDERED: hydrALAZINE HCL 20 MG/1 ML VIAL IV ONE (04:00)
[2020-09-13] MEDS ORDERED: hydrALAZINE HCL 20 MG/1 ML VIAL ONE (04:16)
--- NOTE | 2020-09-13 05:00 | NUR ---
Patient to be admitted to the ICU per Dr. Wilkins for severe ALOC, not improving since he came in. [facility] contacted for panel, Ángel Saldana to be the admitting provider. sales clerk supervisor made aware of ICU admission, report given.
[2020-09-13] MEDS ORDERED: IV NS 1000 ML 1,000 ML IV PRN (07:00)
[2020-09-13] MEDS ORDERED: ACETAMINOPHEN 650 MG SUPP.RECT RC PRN (07:00)
[2020-09-13] MEDS ORDERED: ONDANSETRON 4 MG/2 ML VIAL IV PRN (07:00)
[2020-09-13] MEDS ORDERED: LORAZEPAM 2 MG/1 ML VIAL IV PRN ×2 (07:00→12:45)
--- NOTE | 2020-09-13 07:15 | NUR ---
Patient transfer from E.R. to [facility] from [facility] to [facility] with no injury. vitals stable pt. arousable to painful stimuli. Hr of 85, 152/100, rr 20, saturation of 98% on 15L NR. temp of 97.5.
--- NOTE | 2020-09-13 07:30 | NUR ---
Patient transferred to CCU-1 via ER [facility]. Patient transported on color television console monitor and 15L o2 nonrebreather. Report given to Day shift CLINT Rushing. VS stable on transport. Patient woke up for a bit when transerred into his CCU bed, and exhibited alertness for the first time since he came in.
--- NOTE | 2020-09-13 08:30 | NUR ---
NR down to 10L. per RT Zoran.
[2020-09-13] MEDS: ENOXAPARIN SODIUM 40 MG/0.4 ML DISP.SYRIN SQ SCH (09:13)
[2020-09-13] MEDS: PANTOPRAZOLE SODIUM 40 MG VIAL IV SCH (09:13)
--- NOTE | 2020-09-13 11:18 | NUR ---
Middle School Librarian note: Middle School Librarian consultation for homelessness and polysubstance use. Patient is a 30 year old male who was brought in to the ED by paramedics after the police found him non-responsive. This INLAYER attempted to meet with the patient, but patient is lethargic and not interviewable. This INLAYER will follow-up with the patient at a later time.
[2020-09-13] MEDS ORDERED: MORPHINE SULFATE 2 MG/1 ML DISP.SYRIN IV PRN (12:45)
[2020-09-13] MEDS: IV D5 1/2 NS 1000 ML 1,000 ML IV PRN (12:53)
[2020-09-13 13:29] LABS: BASOPHILS # (AUTO) 0.1 K/uL (0.0-8.0); BASOPHILS % (AUTO) 0.6 % (0.0-2.0); EOSINOPHILS % (AUTO) 0.3 % (0.0-7.0); HEMATOCRIT 44.7 % (36.7-47.1); HEMOGLOBIN 14.8 g/dL (12.5-16.3); LYMPHOCYTES # (AUTO) 0.7 K/uL (20.0-40.0); LYMPHOCYTES % (AUTO) 7.1 % (20.5-51.5); MEAN CORPUSCULAR HGB CONC 33 g/dL (32.5-36.3); MEAN CORPUSCULAR VOLUME 93.3 fL (73.0-96.2); MONOCYTES # (AUTO) 0.6 K/uL (2.0-10.0); MONOCYTES % (AUTO) 6.3 % (0.0-11.0); NEUTROPHILS # (AUTO) 8.3 K/uL (1.8-8.9); NEUTROPHILS % (AUTO) 85.7 % (38.5-71.5); PLATELET COUNT (AUTO) 257 K/uL (152-348); RED BLOOD CELL COUNT(AUTO) 4.79 MIL/uL (4.06-5.63); WHITE BLOOD COUNT (AUTO) 9.6 K/uL (3.6-10.2)
[2020-09-13 13:43] LABS: POTASSIUM 4.1 mmol/L (3.5-5.1)
--- NOTE | 2020-09-13 13:44 | NUR ---
informed of the need to have and incapacitated consent for CT with contrast signed by 2 physicians per hospital protocol, or to wait until pt. is oriented enough to sign one. Ok to wait for procedure at this time.
[2020-09-13 13:57] LABS: BILIRUBIN,TOTAL 1.6 mg/dL (0.2-1.0); PHOSPHOROUS 3.5 mg/dL (2.5-4.9); TOTAL PROTEIN, SERUM 6.3 g/dL (6.4-8.2)
[2020-09-13] MEDS ORDERED: PIPERACILLIN SODIUM/TAZOBACTAM 3.375 G in IV DEXTROSE 5% 50 ML IV ONE (14:00)
--- NOTE | 2020-09-13 15:43 | NUR ---
NR oxygen supply down to 10L. pt. tolerating well at this time.
--- NOTE | 2020-09-13 19:05 | NUR ---
Received patient in bed. patient remains minimally responsive to painful stimuli. Positive gag and cough reflex. Patient remains on 10L non-rebreather SAT 100%. D5 0.45% NS running @80mL/HR. Patient is afebrile at this time, though is slightly diaphoretic. Celestin catheter remains in place draining clear dark yellow urine.
[2020-09-13] MEDS: PIPERACILLIN SODIUM/TAZOBACTAM 3.37 G in IV DEXTROSE 5% 100 ML IV SCH (22:25)
[2020-09-14] VITALS (13 sets, daily range): BP systolic 107–118; BP diastolic 60–70
[2020-09-14 05:05] LABS: BASOPHILS # (AUTO) 0.1 K/uL (0.0-8.0); BASOPHILS % (AUTO) 0.5 % (0.0-2.0); EOSINOPHILS % (AUTO) 0.1 % (0.0-7.0); HEMATOCRIT 44.3 % (36.7-47.1); HEMOGLOBIN 14.6 g/dL (12.5-16.3); LYMPHOCYTES # (AUTO) 1.6 K/uL (20.0-40.0); LYMPHOCYTES % (AUTO) 10.9 % (20.5-51.5); MEAN CORPUSCULAR HEMOGLOBIN 30.6 uug (23.8-33.4); MEAN CORPUSCULAR HGB CONC 33 g/dL (32.5-36.3); MEAN CORPUSCULAR VOLUME 93.1 fL (73.0-96.2); MONOCYTES # (AUTO) 0.7 K/uL (2.0-10.0); MONOCYTES % (AUTO) 4.9 % (0.0-11.0); NEUTROPHILS # (AUTO) 12.5 K/uL (1.8-8.9); NEUTROPHILS % (AUTO) 83.6 % (38.5-71.5); PLATELET COUNT (AUTO) 251 K/uL (152-348); RED BLOOD CELL COUNT(AUTO) 4.76 MIL/uL (4.06-5.63); WHITE BLOOD COUNT (AUTO) 14.9 K/uL (3.6-10.2)
[2020-09-14 05:24] LABS: CREATININE 1.3 mg/dL (0.6-1.3); MAGNESIUM 2.1 mg/dL (1.8-2.4); PHOSPHOROUS 3.7 mg/dL (2.5-4.9)
--- NOTE | 2020-09-14 05:30 | NUR ---
Patient awoke during bed bath. He is A/O x3 currently and states he feels fine. He told me that he took 18 2mg clonazepam pills yesterday in addition to the methamphetamine he normally smokes. Patient is currently not complaining of any SOB and in no signs of distress while completely on room air. O2 SAT on RA 100%.
[2020-09-14] MEDS: PIPERACILLIN SODIUM/TAZOBACTAM 3.37 G in IV DEXTROSE 5% 100 ML IV SCH (06:00)
[2020-09-14] MEDS: IV D5 1/2 NS 1000 ML 1,000 ML IV PRN (06:01)
--- NOTE | 2020-09-14 07:20 | NUR ---
Bharat Wakefield in the unit to see and assess pt. full report given
--- NOTE | 2020-09-14 07:25 | NUR ---
received pt in bed asleep but arousable to verbal stimuli. pt A&Ox3 and able to follow commands however remains lethargic. pt is on room air with O2 saturation 100%. pt NSR on the monitor. Celestin cath in place. pt has (R) forearm IV running D51/2NS @80ml/hr.
--- NOTE | 2020-09-14 08:00 | NUR ---
Cardio Dr. Robison in the unit to see and assess pt. full report given
[2020-09-14] MEDS: PANTOPRAZOLE SODIUM 40 MG VIAL IV SCH (08:12)
[2020-09-14] MEDS: ENOXAPARIN SODIUM 40 MG/0.4 ML DISP.SYRIN SQ SCH (08:13)
--- NOTE | 2020-09-14 08:55 | NUR ---
per pharmacy, ask pt if he takes any medications at home. pt denies taking any medications at home. pt states he usually doesn't take any medications. pharmacy informed
--- NOTE | 2020-09-14 12:36 | NUR ---
Notified Dr. Gaston Molina that patient wants to leave AMA. Acknowledged by ok to go if he choses. Disintegrator Feeder notified that patient is leaving.
--- NOTE | 2020-09-14 12:59 | NUR ---
pt left AMA. AMA form signed by pt. educated on leaving agaisnt medical advice however insists on leaving. pt escorted by security. pt able to stand up and walk by himself. pt alert & oriented and stated "I feel 100% fine. I need to go about my business". pt refused to wait for MD to assess him and stated "I just want to leave. I don't need a doctor". peripheral IV line and dean catheter removed prior to leaving. pt left with all belongings. Addendum: 09/14/20 at 1316 by BHARGAV BEARD RN additional notes: prior to leaving pt denied any suicidal ideations or any intentions to hurt himselg. pt stated "I was trying to have a good time. I'm 30, I want to live life".
--- NOTE | 2020-09-14 16:44 | NUR ---
Parks Recreation Coordinator note: this AGRICULTURAL AGENT attempted to follow-up with the patient to complete transition social worker consultation, as patient was lethargic yesterday and therefore this AGRICULTURAL AGENT was not able to interview him. This AGRICULTURAL AGENT was informed that patient left AMA. This AGRICULTURAL AGENT was unable to complete transition social worker consultation at this time.
== END 2020-09-14 13:17 | disposition left against medical advice (07) | DRG 917 ==
LOC: ER 00:33 → CCU 06:54
PROVIDERS: ADMIT Internal Medicine
DX: T43.621A Poisoning by amphetamines, accidental (unintentional), initial encounter (principal); G92 Toxic encephalopathy; J69.0 Pneumonitis due to inhalation of food and vomit; N17.0 Acute kidney failure with tubular necrosis; D68.59 Other primary thrombophilia; M62.82 Rhabdomyolysis; J90 Pleural effusion, not elsewhere classified; E86.0 Dehydration; F20.9 Schizophrenia, unspecified; F17.200 Nicotine dependence, unspecified, uncomplicated; F32.9 Major depressive disorder, single episode, unspecified; F41.9 Anxiety disorder, unspecified; I10 Essential (primary) hypertension; Z20.822 Contact with and (suspected) exposure to COVID-19; T42.4X1A Poisoning by benzodiazepines, accidental (unintentional), initial encounter; T40.7X1A Poisoning by cannabis (derivatives), accidental (unintentional), initial encounter; T40.2X1A Poisoning by other opioids, accidental (unintentional), initial encounter; F19.188 Other psychoactive substance abuse with other psychoactive substance-induced disorder; Z74.09 Other reduced mobility; R93.89 Abnormal findings on diagnostic imaging of other specified body structures; Y92.89 Other specified places as the place of occurrence of the external cause
CPT/HCPCS: 36415; 51702; 70030-TC; 70450; 71045; 83605; 83690; 83735; 84100; 84443; 85025; 87040; 93005; A4663; C1758; C9113; G0378; G0480; J0360; J1650; J2060; J2310; J2543; J3490; J7030; J7060

== ENCOUNTER 2020-09-15 04:00 | Emergency (ER) | payer MEDICARE, OTHER ==
[~2020-09-15] VITALS: Ht 182.9 cm; Wt 90.7 kg
== END 2020-09-15 04:26 | disposition home or self-care (01) ==
LOC: ER 04:04
DX: Z76.5 Malingerer [conscious simulation] (principal); G89.29 Other chronic pain; F20.9 Schizophrenia, unspecified; F19.10 Other psychoactive substance abuse, uncomplicated; Z59.0 Homelessness
CPT/HCPCS: A4663

== ENCOUNTER 2020-09-22 21:50 | Emergency (ER) | payer MEDICARE, OTHER ==
[~2020-09-22] VITALS: Ht 182.9 cm; Wt 90.7 kg
[2020-09-22 22:51] VITALS: BP 118/59
== END 2020-09-22 22:35 | disposition home or self-care (01) ==
LOC: ER 21:50
DX: G89.4 Chronic pain syndrome (principal); Z76.5 Malingerer [conscious simulation]; F41.9 Anxiety disorder, unspecified; Z59.0 Homelessness; F17.210 Nicotine dependence, cigarettes, uncomplicated; J45.909 Unspecified asthma, uncomplicated; F20.9 Schizophrenia, unspecified; Z86.19 Personal history of other infectious and parasitic diseases; F32.9 Major depressive disorder, single episode, unspecified; F15.10 Other stimulant abuse, uncomplicated
CPT/HCPCS: A4663

== ENCOUNTER 2020-09-25 23:27 | Emergency (ER) | payer MEDICARE, OTHER ==
[~2020-09-25] VITALS: Ht 182.9 cm; Wt 90.7 kg
--- NOTE | 2020-09-26 00:40 | NUR ---
Dr. Wilkins at bedside for MSE.
[2020-09-26 00:55] LABS: *BILIRUBIN,URIN NEGATIVE (NEGATIVE); *BLOOD, URINE NEGATIVE (NEGATIVE); *CLARITY,URINE CLEAR (CLEAR); *COLOR,URINE YELLOW (YELLOW); *KETONES,URINE NEGATIVE (NEGATIVE); LEUKOCYTE ESTERASE ,URINE NEGATIVE (NEGATIVE); NITRITE, URINE NEGATIVE (NEGATIVE); PH,URINE 5.5 (5.0-8.0); UGLUCOSE NEGATIVE (NEGATIVE)
[2020-09-26 01:11] LABS: *AMPHETAMINE, URINE POSITIVE (NEGATIVE); *CANNABINOID, URINE POSITIVE (NEGATIVE); *COCCAINE, URINE NEGATIVE (NEGATIVE); *OPIATE, URINE NEGATIVE (NEGATIVE); *PHENCYCLIDINE SCREEN,URINE NEGATIVE (NEGATIVE)
--- NOTE | 2020-09-26 04:16 | NUR ---
Patient given written and verbal discharge instructions. Patient verbalizes understanding of instructions. Patient is ambulatory with steady gait. Refuses offer of intermediate placement. Patient given list of available shelters in surrounding area. VSS, no acute signs of distress, all belongings taken, refused all other services available at this time.
[2020-09-26 04:19] VITALS: BP 112/85
== END 2020-09-26 04:20 | disposition home or self-care (01) ==
LOC: ER 23:27
DX: F15.10 Other stimulant abuse, uncomplicated (principal); F41.9 Anxiety disorder, unspecified; Z76.5 Malingerer [conscious simulation]; Z59.0 Homelessness; F17.210 Nicotine dependence, cigarettes, uncomplicated; F20.9 Schizophrenia, unspecified; G89.29 Other chronic pain; F32.9 Major depressive disorder, single episode, unspecified
CPT/HCPCS: A4663

== ENCOUNTER 2020-10-03 15:15 | Emergency (ER) | payer MEDICARE, OTHER ==
--- NOTE | 2020-10-03 15:47 | NUR ---
called no answer
--- NOTE | 2020-10-03 15:50 | NUR ---
called, no answer
--- NOTE | 2020-10-03 15:53 | NUR ---
called no answer
== END 2020-10-03 15:54 | disposition left against medical advice (07) ==
LOC: ER 15:15
DX: Z53.21 Procedure and treatment not carried out due to patient leaving prior to being seen by health care provider (principal)

== ENCOUNTER 2020-10-13 11:45 | Emergency (ER) | payer MEDICARE, OTHER ==
[~2020-10-13] VITALS: Ht 182.9 cm; Wt 90.7 kg
--- NOTE | 2020-10-13 12:10 | NUR ---
Dr Amber Campbell at bedside for MSE.
[2020-10-13] MEDS ORDERED: ALPR0.5T8 PO (12:15)
[2020-10-13] MEDS ORDERED: ALPRAZOLAM 0.25 MG TABLET PO ONE (12:15)
[2020-10-13] MEDS ORDERED: ALPRAZOLAM 0.25 MG TABLET ONE (12:18)
--- NOTE | 2020-10-13 12:30 | NUR ---
Pt has been cleared for DC. Written and verbal after care instructions given. Patient verbalizes understanding of instructions. Stressed follow up or return to ER for worsening s/s. Refuses offer of fdc placement. Patient given list of available shelters in surrounding area. Patient discharged in stable condition, ambulated out of ED in steady gait.
[2020-10-13 12:33] VITALS: BP 120/70
== END 2020-10-13 12:33 | disposition home or self-care (01) ==
LOC: ER 11:45
DX: F41.9 Anxiety disorder, unspecified (principal); Z59.0 Homelessness; F17.210 Nicotine dependence, cigarettes, uncomplicated; G89.29 Other chronic pain; F20.9 Schizophrenia, unspecified
CPT/HCPCS: A4663

== ENCOUNTER 2020-10-27 00:20 | Emergency (ER) | payer MEDICARE, OTHER ==
[~2020-10-27] VITALS: Ht 182.9 cm; Wt 90.7 kg
[~2020-10-27 00:20] MED LIST changes: +ALPR0.5T8 PO; -ARIP15TA3 PO; -HYDR-3980 PO; -IBUP-1955 PO; -OXYC-133 PO
--- NOTE | 2020-10-27 01:26 | NUR ---
Dr. Wilkins at bedside for MSE.
[2020-10-27] MEDS ORDERED: CHLORDIAZEPOXIDE HCL 25 MG CAPSULE PO ONE (01:30)
--- NOTE | 2020-10-27 01:39 | NUR ---
Patient given written and verbal discharge instructions. Patient verbalizes understanding of instructions. Patient is ambulatory with steady gait. Refuses offer of penitentiary placement. Patient given list of available shelters in surrounding area. Stressed follow up or return to ER for worsening s/s.
[2020-10-27 01:42] VITALS: BP 130/77
== END 2020-10-27 01:42 | disposition home or self-care (01) ==
LOC: ER 00:23
DX: F41.9 Anxiety disorder, unspecified (principal); M79.672 Pain in left foot; M79.671 Pain in right foot; F17.210 Nicotine dependence, cigarettes, uncomplicated; Z59.0 Homelessness; F20.9 Schizophrenia, unspecified; Z79.899 Other long term (current) drug therapy
CPT/HCPCS: A4663

== ENCOUNTER 2020-11-08 14:31 | Emergency (ER) | payer MEDICARE, OTHER ==
[~2020-11-08] VITALS: Ht 182.9 cm; Wt 90.7 kg
--- NOTE | 2020-11-08 15:25 | NUR ---
Patient walks into ED today complaining of 10/10 Foot Pain. Steady gait, no limp, no grimacing. A&Ox4. Disheveled appearance. Ambulates with no issues or signs of pain. No other issues present at this time. VSS. No SOB, no CP. No N/V/D.
--- NOTE | 2020-11-08 15:49 | NUR ---
Patient left without being seen.
--- NOTE | 2020-11-09 18:37 | NUR ---
Patient eloped from Emergency Department. Disregard previous note.
== END 2020-11-08 15:50 | disposition left against medical advice (07) ==
LOC: ER 14:31
DX: G89.29 Other chronic pain (principal); M79.672 Pain in left foot; Z76.5 Malingerer [conscious simulation]; F41.9 Anxiety disorder, unspecified; Z59.0 Homelessness; F17.210 Nicotine dependence, cigarettes, uncomplicated
CPT/HCPCS: A4663

== ENCOUNTER 2020-11-08 23:25 | Emergency (ER) | payer MEDICARE, OTHER ==
[~2020-11-08] VITALS: Ht 182.9 cm; Wt 90.7 kg
== END 2020-11-09 03:30 | disposition left against medical advice (07) ==
LOC: ER 23:26
DX: Z53.21 Procedure and treatment not carried out due to patient leaving prior to being seen by health care provider (principal)

== ENCOUNTER 2020-11-09 13:49 | Emergency (ER) | payer MEDICARE, OTHER ==
[~2020-11-09] VITALS: Ht 652.8 cm; Wt 83.9 kg
--- NOTE | 2020-11-09 14:27 | NUR ---
lunch and list of community services provided for pt.
== END 2020-11-09 14:31 | disposition home or self-care (01) ==
LOC: ER 13:49
DX: F41.0 Panic disorder [episodic paroxysmal anxiety] (principal); Z59.0 Homelessness; G89.29 Other chronic pain; F17.210 Nicotine dependence, cigarettes, uncomplicated; F15.10 Other stimulant abuse, uncomplicated
CPT/HCPCS: A4663

== ENCOUNTER 2020-11-14 12:18 | Emergency (ER) | payer MEDICARE, OTHER ==
[~2020-11-14] VITALS: Ht 182.9 cm; Wt 83.9 kg
--- NOTE | 2020-11-14 12:24 | NUR ---
Dr Das at the bedside for MSE.
--- NOTE | 2020-11-14 12:30 | NUR ---
Lunch tray provided per pt's request.
--- NOTE | 2020-11-14 13:13 | NUR ---
Patient given written and verbal discharge instructions. Patient verbalizes understanding of instructions. Patient is ambulatory with steady gait. Refuses offer of [facility] placement. Patient given list of available shelters in surrounding area.
[2020-11-14 13:21] VITALS: BP 110/77
== END 2020-11-14 13:21 | disposition home or self-care (01) ==
LOC: ER 12:20
DX: F41.9 Anxiety disorder, unspecified (principal); F19.10 Other psychoactive substance abuse, uncomplicated; F17.210 Nicotine dependence, cigarettes, uncomplicated; Z59.0 Homelessness; F20.9 Schizophrenia, unspecified
CPT/HCPCS: A4663

== ENCOUNTER 2020-11-20 22:09 | Emergency (ER) | payer MEDICARE, OTHER ==
--- NOTE | 2020-11-20 22:22 | NUR ---
Patient was brought into triaged area but states "I change my mind. I don't want to be seen anymore." Patient left without being triaged or seen by ERMD.
== END 2020-11-20 22:24 | disposition left against medical advice (07) ==
LOC: ER 22:10
DX: Z53.21 Procedure and treatment not carried out due to patient leaving prior to being seen by health care provider (principal)

== ENCOUNTER 2020-11-25 06:46 | Emergency (ER) | payer MEDICARE, OTHER ==
[~2020-11-25] VITALS: Ht 182.9 cm; Wt 83.9 kg
--- NOTE | 2020-11-25 07:13 | NUR ---
Patient nafter being traiged states "I don't want to be seen any." Patient was traiged but was not seen by ERMD.
== END 2020-11-25 07:59 | disposition left against medical advice (07) ==
LOC: CANPREER → ER 06:46
DX: Z53.21 Procedure and treatment not carried out due to patient leaving prior to being seen by health care provider (principal)

== ENCOUNTER 2020-12-03 17:05 | Emergency (ER) | payer MEDICARE, OTHER ==
[~2020-12-03] VITALS: Ht 182.9 cm; Wt 83.9 kg
[2020-12-04] MEDS ORDERED: NAPR-1164 PO (05:08)
== END 2020-12-03 18:22 | disposition left against medical advice (07) ==
LOC: ER 17:07
DX: Z53.21 Procedure and treatment not carried out due to patient leaving prior to being seen by health care provider (principal)

== ENCOUNTER 2020-12-04 04:43 | Emergency (ER) | payer MEDICARE, OTHER ==
[~2020-12-04] VITALS: Ht 182.9 cm; Wt 83.9 kg
[2020-12-04] MEDS ORDERED: NAPR-1164 PO (05:08)
[2020-12-04 05:15] VITALS: BP 120/72
--- NOTE | 2020-12-04 05:15 | NUR ---
Patient discharged to home in stable condition. Written and verbal after care instructions given. Patient verbalizes understanding of instructions. Stressed follow up or return to ER for worsening s/s. Patient ambulates with steady gait, V/S stable, received paper Rx, and left with all personal belongings.
== END 2020-12-04 05:15 | disposition home or self-care (01) ==
LOC: ER 04:45
DX: M54.5 Low back pain (principal); F17.210 Nicotine dependence, cigarettes, uncomplicated; F41.9 Anxiety disorder, unspecified; F20.9 Schizophrenia, unspecified; G89.29 Other chronic pain; Z59.0 Homelessness
CPT/HCPCS: A4663

== ENCOUNTER 2020-12-05 08:11 | Emergency (ER) | payer MEDICARE, OTHER ==
[~2020-12-05] VITALS: Ht 182.9 cm; Wt 83.9 kg
[~2020-12-05 08:11] MED LIST changes: +NAPR-1164 PO
--- NOTE | 2020-12-05 08:30 | NUR ---
Liat lazo in [facility] - 12/05/20 at 0901 by RUFINO pt seen and evaluated by dr claire
--- NOTE | 2020-12-05 08:33 | NUR ---
Dr Olivas seen and examined the pt.
[2020-12-05 08:59] VITALS: BP 136/90
== END 2020-12-05 08:50 | disposition home or self-care (01) ==
LOC: ER 08:11
DX: F41.9 Anxiety disorder, unspecified (principal); Z59.0 Homelessness; F17.210 Nicotine dependence, cigarettes, uncomplicated; G89.29 Other chronic pain
CPT/HCPCS: A4663

== ENCOUNTER 2020-12-16 06:48 | Emergency (ER) | payer MEDICARE, OTHER ==
[~2020-12-16] VITALS: Ht 182.9 cm; Wt 90.7 kg
--- NOTE | 2020-12-16 07:21 | NUR ---
at bedside for assessment
--- NOTE | 2020-12-16 07:29 | NUR ---
Patient ripped homeless jax checklist and packet, Patient discharged to home in stable condition. Written and verbal after care instructions given. Patient verbalizes understanding of instructions. Stressed follow up or return to ER for worsening s/s.
[2020-12-16 07:31] VITALS: BP 129/82
== END 2020-12-16 07:32 | disposition home or self-care (01) ==
LOC: ER 06:50
DX: F41.9 Anxiety disorder, unspecified (principal); Z59.0 Homelessness; F17.210 Nicotine dependence, cigarettes, uncomplicated; G89.29 Other chronic pain; F15.10 Other stimulant abuse, uncomplicated
CPT/HCPCS: A4663

== ENCOUNTER 2020-12-25 05:28 | Emergency (ER) | payer MEDICARE, OTHER ==
[~2020-12-25] VITALS: Ht 182.9 cm; Wt 90.7 kg
--- NOTE | 2020-12-25 05:36 | NUR ---
PT AMBULATED TO ER IN CALM MANNER C/O ANXIETY/PANIC ATTACK. PT A/O X3, NO SOB OR LABORED BREATHING. DENIES ANY PAIN/DISCOMFORT. DR. NANCE AT BEDSIDE, MSE IN PROGRESS.
[2020-12-25] MEDS ORDERED: LORAZEPAM 0.5 MG TABLET PO ONE (05:45)
[2020-12-25] MEDS ORDERED: LORAZEPAM 1 MG TABLET ONE (05:52)
--- NOTE | 2020-12-25 06:03 | NUR ---
Patient given written and verbal discharge instructions. A/O x3, denies any pain/discomfort upon discharge. Patient verbalizes understanding of instructions. Patient is ambulatory with steady gait. Refuses offer of group home placement. Patient given list of available shelters in surrounding area.
[2020-12-25 06:04] VITALS: BP 137/77
== END 2020-12-25 06:00 | disposition home or self-care (01) ==
LOC: ER 05:30
DX: F41.9 Anxiety disorder, unspecified (principal); Z59.0 Homelessness; F12.10 Cannabis abuse, uncomplicated; F15.10 Other stimulant abuse, uncomplicated
CPT/HCPCS: A4663